=== PATIENT | male | born 1975 | race Two or more races ===

== ENCOUNTER 2019-12-01 09:43 | Emergency (ER) | payer SELFPAY ==
[~2019-12-01] VITALS: Ht 180.3 cm; Wt 109.0 kg
[2019-12-01 10:03] VITALS: BP 171/100
--- NOTE | 2019-12-01 10:07 | PHYS DOC ---
Adult General Chief Complaint Chief Complaint: LACERATION/AVULSION HPI HPI Patient is a 43 year old male who presents with was fixing the dog stopped tis morning with a [employer] knife. Patient states the dog jumped on his back and the knife slipped and cut his dorsal left thumb just distal to be left side of the fingernail. He also has a laceration to the dorsal index finger. Patient rates his pain a 7 out of 10. He does not know when his last tetanus shot was. (LIS MONTES APRN) Review of Systems Review of Systems Constitutional: Denies fever or chills [] Eyes: Denies change in visual acuity, redness, or eye pain [] HENT: Denies nasal congestion or sore throat [] Respiratory: Denies cough or shortness of breath [] Cardiovascular: No additional information not addressed in HPI [] GI: Denies abdominal pain, nausea, vomiting, bloody stools or diarrhea [] : Denies dysuria or hematuria [] Musculoskeletal: Denies back pain or joint pain [] Integument: Laceration to left thumb and index finger. Denies rash or skin lesions [] Neurologic: Denies headache, focal weakness or sensory changes [] Endocrine: Denies polyuria or polydipsia [] All other systems were reviewed and found to be within normal limits, except as documented in this note. (LIS MONTES APRN) Current Medications Current Medications Current Medications Medications (Trade) Dose Ordered Sig/Henrik Start Time Stop Time Status Last Admin Dose Admin Diphtheria/ Tetanus/Acell Pertussis (Boostrix) 0.5 ml ONCE ONCE 12/01/19 10:45 12/01/19 10:46 DC 12/01/19 10:37 0.5 ML Lidocaine HCl (Lidocaine 1% 20ml Vial) 20 ml 1X ONCE 12/01/19 10:45 12/01/19 10:46 DC 12/01/19 10:36 20 ML Neomycin/ Polymyxin/ Bacitracin (Triple Antibiotic Ointment) 1 pkt 1X ONCE 12/01/19 12:00 12/01/19 12:01 DC 12/01/19 12:01 1 PKT (NILAY SOTO MD) Allergies Allergies Allergies Coded Allergies Type Severity Reaction Last Updated Verified No Known Drug Allergies 12/01/19 No (NILAY SOTO MD) Physical Exam Physical Exam Constitutional: Well developed, well nourished, no acute distress, non-toxic appearance. [] HENT: Normocephalic, atraumatic, bilateral external ears normal, oropharynx moist, no oral exudates, nose normal. [] Eyes: PERRLA, EOMI, conjunctiva normal, no discharge. [] Neck: Normal range of motion, no tenderness, supple, no stridor. [] Cardiovascular:Heart rate regular rhythm, no murmur [] Lungs & Thorax: Bilateral breath sounds clear to auscultation [] Abdomen: Bowel sounds normal, soft, no tenderness, no masses, no pulsatile masses. [] Skin: Laceratio to left thumb and index finger. Warm, dry, no erythema, no rash. [] Back: No tenderness, no CVA tenderness. [] Extremities: No tenderness, no cyanosis, no clubbing, ROM intact, no edema. [] Neurologic: Alert and oriented X 3, normal motor function, normal sensory function, no focal deficits noted. [] Psychologic: Affect normal, judgement normal, mood normal. [] (LIS MONTES APRN) Current Patient Data Vital Signs Vital Signs Date Time Temp Pulse Resp B/P (MAP) Pulse Ox O2 Delivery O2 Flow Rate FiO2 12/01/19 10:03 98.3 74 20 171/100 (123) 98 Room Air 98.3 (NILAY SOTO MD) EKG EKG [] (LIS MONTES APRN) Radiology/Procedures Radiology/Procedures [] (LIS MONTES APRN) Impressions: [facility] [address] [place], [place] [id number] IMAGING REPORT Signed PATIENT: BRIDGER GOINS ACCOUNT: [id number] : 1975 LOCATION: ER AGE: 43 SEX: M EXAM STATUS: REG ER ORD. PHYSICIAN: LIS MONTES APRN REASON: LACERATION TO THUMB AND INDEX FINGER PROCEDURE: HAND LEFT 3V Three-view left hand study Clinical indications: Laceration injury involving the thumb and index finger. FINDINGS: No acute fracture or dislocation or lytic process is seen. No radiopaque foreign body is evident. IMPRESSION: No acute osseous abnormality. Electronically signed by: Kate Ortega MD (12/01/2019 10:27 AM) [facility] DICTATED and SIGNED BY: KATE ORTEGA MD DATE: 12/01/19 1027 (LIS MONTES APRN) Course & Med Decision Making Course & Med Decision Making Pertinent Labs and Imaging studies reviewed. (See chart for details) Alert and oriented. Radial pulses are present. Cap refill less than 3 seconds. Left index finger laceration is 3cm long with approximated edges and the second, left thumb superficial laceration is 1.5 cm long with approximated edges and does not require sutures. Bleeding controlled. Patient has full strength of the hand to make a fist. No joint laxity or injury. No injury to the nailbed. Laceration Repair by me: Anesthesia: 1% lidocaine locally Location: Left index finger Tendon/Joint/Nerves: No injury Foreign body: None detected after copious irrigation with saline and chlorhexidine and exploration Technique: 4 Simple Interrupted Sutures Complexity: No subcutaneous sutures/mucosal repair/edge excision Post Closure Length: 3 cm Patient's bleeding was easily controlled in the department and there is no indication of anemia. No evidence of compartment syndrome, neurologic injury, vascular injury, open joint, tendon laceration, or foreign body. Patient is appropriate for outpatient follow up. 48 hour wound check. Scar minimization instructions given. [] (LIS MONTES APRN) Course & Med Decision Making Staff Physician Addendum: I was working in the ER during the course of this patient's visit. I was available for consultation as needed, but I was not directly involved in the care of this patient. (NILAY SOTO MD) Dragon Disclaimer Dragon Disclaimer This electronic medical record was generated, in whole or in part, using a voice recognition dictation system. (LIS MONTES APRN) Departure Departure Impression: Primary Impression: Laceration Disposition: 01 HOME, SELF-CARE Condition: STABLE Patient Instructions: Fingertip Laceration, Laceration Care, Adult Additional Instructions: Return here for suture removal in 10 days. Keep the area clean and covered. Use antibiotic ointment on the thumb superficial cut. LIS MONTES APRN Dec 01, 2019 10:07 NILAY SOTO MD Dec 02, 2019 06:35
--- NOTE | 2019-12-01 10:31 | RAD ---
Three-view left hand study Clinical indications: Laceration injury involving the thumb and index finger. FINDINGS: No acute fracture or dislocation or lytic process is seen. No radiopaque foreign body is evident. IMPRESSION: No acute osseous abnormality. Electronically signed by: Ayan Ortega MD (12/01/2019 10:27 AM) [facility]
[2019-12-01] MEDS ORDERED: LIDOCAINE 1% Multi-Dose 20 ML VIAL. INJ ONE (10:45)
[2019-12-01] MEDS ORDERED: DIPHTH,PERTUSS(ACELL),TET TOX 0.5 ML DISP.SYRIN. VAX IM ONE (10:45)
[2019-12-01] MEDS ORDERED: NEOMY/BACITR/POLYMYXIN OINT PACKET. TP ONE (12:00)
== END 2019-12-01 12:10 | disposition home or self-care (01) ==
LOC: ER 09:43
DX: S61.211A Laceration without foreign body of left index finger without damage to nail, initial encounter (principal); W26.0XXA Contact with knife, initial encounter; Y93.89 Activity, other specified; Y92.89 Other specified places as the place of occurrence of the external cause; Y99.8 Other external cause status
CPT/HCPCS: 12002; 73130; 90471; 90715; 99283